=== PATIENT | male | born 1950 | race Caucasian/White ===

== ENCOUNTER → 2017-05-08 | Outpatient (CLI) | payer MEDICARE, OTHER ==
[2017-05-08 08:20] LABS: Blood Urea Nitrogen 14 mg/dL (9-20); Non-African American GFR(MDRD) >60 (>60 ml/min/1.73 sqM)
--- NOTE | 2017-05-08 10:15 | CT ---
EXAMINATION TYPE: CT abdomen pelvis w con DATE OF EXAM: 05/08/2017 REFERENCE: NONE HISTORY: K43.2 incisional hernia HISTORY: Incisional hernia REFERENCE: NONE CT DLP: 530.10 mGy Automated exposure control for dose reduction was used. TECHNIQUE: Helical acquisition through the abdomen and pelvis was obtained following the oral ingesti on of with Oral Contrast and following intravenous administration of 100 ml mL of Omnipaque 300. The data was reformatted in axial, coronal and sagittal projections. FINDINGS: There is an incompletely visualized 5.4 x 6.8 x 5.6 cm right lower thoracic paraspinal mas s which appears to extend across the midline.0 there is no associated vertebral body destruction. Thi s space appears maintained at these levels. There is some mild, dependent atelectasis at the lung bases. There is no pleural or pericardial fluid . The heart is not enlarged. Within the abdomen, there is an eventration of the rectus sheath. There is a small ventral hernia con taining small bowel with a mouth measuring approximately 2.7 cm. The liver, spleen and gallbladder are normal. Both adrenal glands are normal. Both kidneys demonstrate function and appear morphologically normal. The pancreas is unremarkable. There is [id number] calcification of the aortoiliac vessels. There is no significant retrocrural, retroperitoneal, iliac or inguinal adenopathy. The bladder is unremarkable. There is no significant diverticular change and there is no radiographic evidence of diverticulitis. The appendix is normal. Small bowel loops appear normal. There is no free fluid and no free air identified. There is a bilateral lysis at L5 with a grade 1 bordering on grade 2 spondylolisthesis of L4 on L5. T here is degenerative disc disease and hypertrophic spondylosis within the spine. IMPRESSION: 1. INCOMPLETELY VISUALIZED PARASPINAL MASS ON THE RIGHT EXTENDING ACROSS THE MIDLINE. A DIFFERENTIAL DIAGNOSIS WOULD INCLUDE NEUROGENIC TUMOR, LYMPHOMA AND EXTRA MEDULLARY HEMATOPOIESIS. 2. SMALL VENTRAL HERNIA CONTAINING SMALL BOWEL WITHOUT EVIDENCE OF OBSTRUCTION. 3. BILATERAL LYSIS AT L5 WITH A GRADE 1 BORDERING ON GRADE 2 SPONDYLOLISTHESIS OF L5 ON S1. 4. DEGENERATIVE CHANGES WITHIN THE SPINE.
== END | disposition home or self-care (01) ==
LOC: RADCTMAIN 07:41
PROVIDERS: ATTEND Surgery
DX: K43.9 Ventral hernia without obstruction or gangrene (principal)
CPT/HCPCS: 82565; 84520; 74177; Q9967

== ENCOUNTER → 2017-05-21 | Outpatient (CLI) | payer MEDICARE, OTHER ==
[2017-05-21 07:41] LABS: Blood Urea Nitrogen 20 mg/dL (9-20); Non-African American GFR(MDRD) >60 (>60 ml/min/1.73 sqM)
--- NOTE | 2017-05-21 08:44 | CT ---
EXAMINATION TYPE: CT chest w con DATE OF EXAM: 05/21/2017 COMPARISON: CT abdomen pelvis 05/08/2017 HISTORY: Abn CT abd pelvis, paraspinal mass CT DLP: 272.8 mGycm Automated exposure control for dose reduction was used. CONTRAST: CT scan of the chest is performed with IV Contrast, patient injected with 100 mL of Omnipaque 300. FINDINGS: LUNGS: There are centrilobular emphysematous changes greater as upper lobes, interlobular septal pleu ral thickening changes are also present compatible with interstitial lung disease. MEDIASTINUM: There are no greater than 1 cm hilar or mediastinal lymph nodes. Shotty nodes are presen t within the mediastinum and prevascular, superior mediastinum regions. No pericardial effusion is seen. AORTA: Ascending aorta measures approximately 3.9 cm on coronal reformatted images at the level of t he root. No evident dissection. OTHER: Patient's paraspinal mass is again seen and measures approximately 9 cm in cephalad to caudal dimension by approximately 6 cm in transverse dimension by 7 cm in AP dimension. No definite bone er osion. Vasculature is seen to course through the soft tissue mass. Lesion extends from approximately T9 to T11-12. IMPRESSION: Paraspinal mass as described in previous report, differential remains as discussed previ ously, consider lymphoma, neurogenic tumor, extra medullary hematopoiesis, there is no evident bone e rosion. Borderline ascending aortic measurement, consider follow-up.
== END | disposition home or self-care (01) ==
LOC: RADCTMAIN 07:01
PROVIDERS: ATTEND Surgery
DX: R22.2 Localized swelling, mass and lump, trunk (principal)
CPT/HCPCS: 82565; 84520; 71260; 36415; Q9967

== ENCOUNTER → 2017-06-24 | Outpatient (CLI) | payer MEDICARE, OTHER ==
--- NOTE | 2017-06-24 18:45 | MR ---
EXAMINATION TYPE: MR thoracic spine wo/w con DATE OF EXAM: 06/24/2017 COMPARISON: CT chest May 21, 2017 HISTORY: Back pain per patient. Neoplasm of uncertain behavior of bone and articular cartilage per or tammy. TECHNIQUE: Multiplanar, multisequence imaging of thoracic spine is performed without and with IV cont rast, patient is injected with 15 cc of gadolinium for the study. FINDINGS: Spinal cord shows normal course, caliber, and signal as it courses the thoracic spine. Winsome tebral body heights and alignment are satisfactory. Disc space heights are fairly well preserved. No large posterior disc herniations are seen on sagittal images. Bone marrow signal intensity is maintai joseph. No suspicious postcontrast enhancement is identified. No significant spurring is seen. Sagittal T2 counting image shows reversal of normal cervical curvature with small posterior disc herniations e ffacing anterior thecal sac C3-C4, C5-C6, and C6-C7 levels. Review of the axial images shows no significant spinal canal stenosis or neural disc herniation at an y thoracic level. Correlating with recent CT there is heterogeneous curvilinear enhancing soft tissu e to the right of the aorta in the lower thoracic spine beginning at roughly T9 level extending to T1 2 level with loss of normal retroperitoneal fat. This begins axial image 9 extends through image 4. N oncontiguous axial MRI imaging is performed. No suspicious cortical destruction or adjacent bone namita ow signal changes are identified. IMPRESSION: Abnormal right anterolateral paraspinal soft tissue lower thoracic spine redemonstrated, etiology uncertain. Low-grade infection or infectious process not excluded. Extra medullary hematopoi esis and lymphoma are in differential. Other etiologies are not excluded.
== END | disposition home or self-care (01) ==
LOC: RADMRIMAIN 16:39
PROVIDERS: ATTEND Neurological Surgery
DX: D48.0 Neoplasm of uncertain behavior of bone and articular cartilage (principal)
CPT/HCPCS: 72157; A9577

== ENCOUNTER → 2023-05-13 | Outpatient (CLI) | payer MEDICARE ==
--- NOTE | 2023-05-13 11:17 | XR ---
EXAMINATION TYPE: XR cervical spine comp DATE OF EXAM: 05/13/2023 COMPARISON: NONE HISTORY: Pain TECHNIQUE: Four views are submitted. FINDINGS: The odontoid is intact. There are no compression deformities. The prevertebral soft tissue structur es are within normal limits. Calcification in the soft tissue of the neck appears vascular. There is a 2 mm anterolisthesis of C3 on C4. There is severe degenerative disc disease at levels C4-T1 with m ultilevel facet arthropathy and loss of normal cervical lordosis. There is bilateral foraminal encroa chment level C3-T1. Lung apices are clear. IMPRESSION: 1. Multilevel severe degenerative disc disease and multilevel facet arthropathy with multilevel brandy inal encroachment. Consider follow-up MRI.
== END | disposition home or self-care (01) ==
LOC: RADXRYALE 10:49
PROVIDERS: ATTEND Internal Medicine
DX: M50.321 Other cervical disc degeneration at C4-C5 level (principal); M47.812 Spondylosis without myelopathy or radiculopathy, cervical region; M48.02 Spinal stenosis, cervical region
CPT/HCPCS: 72050

== ENCOUNTER → 2023-09-10 | Outpatient (CLI) | payer MEDICARE ==
--- NOTE | 2023-09-10 11:30 | MR ---
EXAMINATION TYPE: MR brain and iac wo/w con DATE OF EXAM: 09/10/2023 COMPARISON: None HISTORY: Dizziness, ataxia, imbalance. TECHNIQUE: Multiplanar, multisequence images of the brain and brainstem is performed without and with IV contras t, utilizing 7 mL intravenous Gadavist . FINDINGS: Diffusion weighted images demonstrate no evidence of a recent infarct or other diffusion ab normality. There is moderate generalized degenerative change. Numerous areas of abnormal signal throughout the w jonatan matter bilaterally compatible with vascular ischemia. Midline structures demonstrate normal morp hology. The craniocervical junction appears within normal limits. Post contrast images demonstrate no abnormal enhancement. The dural venous sinuses appear patent. On changes of chronic sinusitis. Orbits are symmetric. Abnormal signal appliances most of remote isch emia. There are changes of intermediate signal involving the mastoid air cells most likely on the basis of chronic mastoiditis. No cerebellopontine angle mass or acoustic schwannoma. IMPRESSION: 1. Degenerative and remote ischemic change with no evidence of cerebellopontine angle mass or acousti c schwannoma. 2. Chronic mastoiditis.
== END | disposition home or self-care (01) ==
LOC: RADMRIMAIN 08:54
PROVIDERS: ATTEND Psychiatry & Neurology Neurology
DX: G81.92 Hemiplegia, unspecified affecting left dominant side (principal); I67.82 Cerebral ischemia; G31.9 Degenerative disease of nervous system, unspecified
CPT/HCPCS: 70553; A9585

== ENCOUNTER → 2024-10-02 | Outpatient (CLI) | payer MEDICARE ==
--- NOTE | 2024-10-02 14:04 | MR ---
EXAMINATION TYPE: MR cspine/tspine wo con DATE OF EXAM: 10/02/2024 9:42 AM COMPARISON: 09/12/2023., 06/24/2017 CLINICAL INDICATION: Male, 74 years old with history of M47.12 OTHER SPONDYLOSIS WITH MYELOPATHY, CER VICAL; PHH, F/U abnormal MRI, myelopathy TECHNIQUE: Multi planar, multi sequence imaging was performed utilizing: T1-weighted, T2-weighted, a nd turbo inversion recovery imaging of the cervical and thoracic spine. MR contrast: IV Contrast: cc , None. FINDINGS: CERVICAL: Alignment: The cervical vertebral bodies have preserved heights. Reversal of the normal alignment of the cervical spine is not significantly changed from prior. Bones: Bone signal is within normal limits. No abnormal bone marrow edema on inversion recovery seque nces. Cord: The spinal cord is unremarkable with regards to their signal intensity and morphology. Discs: Multilevel disc desiccation is present. C2-C3: A disc osteophyte complex is present with mild to moderate spinal canal stenosis. Bilateral f acet and uncovertebral joint arthropathy are present with mild bilateral neural foraminal stenosis. C3-C4: A disc osteophyte complex is present with mild spinal canal stenosis. Bilateral facet and unc overtebral joint arthropathy are present with moderate to severe left and moderate right neural brandy inal stenosis. C4-C5: A disc osteophyte complex is present with mild spinal canal stenosis. Bilateral facet and unc overtebral joint arthropathy are present with mild to moderate bilateral neural foraminal stenosis. C5-C6: No significant disc pathology. The spinal canal is patent. Bilateral facet and uncovertebral joint arthropathy are present with moderate to severe left and moderate right neural foraminal stenos is. C6-C7: A disc osteophyte complex is present with moderate spinal canal stenosis. Bilateral facet and uncovertebral joint arthropathy are present with moderate to severe bilateral neural foraminal steno sis. C7-T1: A disc osteophyte complex is present with moderate spinal canal stenosis. Bilateral facet and uncovertebral joint arthropathy are present with moderate to severe bilateral neural foraminal steno sis. THORACIC: No evidence for abnormal bony edema. The neural foramen appear patent. The spinal alignment is within normal limits. No evidence for compression deformity. T10-T11 mild spinal canal stenosis s econdary to disc bulging and ligamentum flavum buckling. There may be a small central disc protrusion at T12-L1 centrally without significant spinal canal stenosis. Other: None. IMPRESSION: Overall findings not significantly changed from prior in the cervical spine with mild progression of the thoracic spine. 1. Moderate to severe degeneration changes of the cervical spine with multilevel moderate and modera te to severe neural foraminal stenosis. There is also multilevel at least moderate spinal canal steno sis. Spinal canal signal appears maintained. 2. No evidence for significant spinal canal stenosis in the thoracic spine. Mild narrowing at T10-T 11. 3. T12-L1 central disc protrusion suggested without significant spinal canal stenosis. No evidence f or significant neural foraminal stenosis throughout the thoracic spine. [facility], , 10/02/2024 2:01 PM
== END | disposition home or self-care (01) ==
LOC: RADMRIMAIN 08:30
PROVIDERS: ATTEND Psychiatry & Neurology Neurology
DX: M48.02 Spinal stenosis, cervical region (principal); M50.00 Cervical disc disorder with myelopathy, unspecified cervical region; M47.12 Other spondylosis with myelopathy, cervical region; M99.71 Connective tissue and disc stenosis of intervertebral foramina of cervical region; R93.7 Abnormal findings on diagnostic imaging of other parts of musculoskeletal system
CPT/HCPCS: 72141; 72146

== ENCOUNTER → 2024-11-11 | Outpatient (CLI) | payer MEDICARE ==
[2024-11-11 10:29] VITALS: BP 170/80; PULSE 67; RESP 16
--- NOTE | 2024-11-11 14:42 | P.PAINPG ---
Objective - Vital Signs Vital signs: Intake & Output 11/10/24 11/11/24 11/11/24 18:59 06:59 18:59 Weight 74.843 kg PQRS Measure Charge Sheet Comment: HISTORY OF PRESENT ILLNESS: A 74 yr old male w at side as a referral from Dr Robison presents today w severe and chronic neck pain > 3 mo secondary to radiculopathy, spondylosis and facet arthropathy without myelopathy for evaluation. Pt states pain level is provoked at 1 /10 in intensity, constant, localized in the cervical spine, predominantly axial, sore in character w occasional shooting pain towards the BL shoulders. He mostly complains of dizziness. Pain is provoked by hyperextension. Pain is alleviated by PT x 6 wks which ended in May 2024 and cannot redo PT until Dec 2024, manual massage, repositioning and rest . Cervical disability score at 5. PMH: OA, HTN, Hyperlipidemia PSH: Abdominal Incisional Wound, Bladder Surgery, Bowel Resection SH: Daily 40 pack/ yr tobacco use, Rare ETOH use, No illicit drug use FH: Mo- No Reported History All: See list Meds: See list REVIEW OF ORGAN SYSTEMS: CONSTITUTIONAL: No fevers or chills. No recent weight loss. NEUROLOGICAL: + numbness and tingling along the distal extremities. No seizure disorders or headaches. MUSCULOSKELETAL: + pain PSYCHIATRIC: Denies current depression or suicidal thoughts. Physical Examinations : Constitutional : Cooperative , not in acute distress . Neurologic : Cranial nerve II to XII intact. No focal neurological deficits. Psychiatric : alert & oriented x 3. Matching mood & appropriate affect. Judgment & insight intact. Musculoskeletal : Cervical Spine Motor strength in the deltoid and biceps: Normal right side. Normal Left side Motor strength biceps and the wrist extensors: Normal right side . Normal left side Motor strength in the triceps muscle: Normal right side. Normal left side Deep tendon reflexes: Normal at the biceps. Normal at Brachioradialis. Normal at triceps Vertebral body tenderness to deep palpation over C7 Cervical facet loading test: positive bilaterally Spurling test: positive bilaterally Neck distraction test: positive bilaterally Keri sign: positive bilaterally Lumbar spine Motor strength lower extremities ,thigh and legs 5/5 Right side , 5/5 Left side Deep tendon reflexes : Normal Knee Jerk. Normal Ankle Jerk Vertebral body tenderness over Lowry Test positive Lumbar facet Loading Test: positive Right / positive Left Range of motion of the lumbar spine Flexion 30 degrees, extension 10 degrees Straight Leg Raise test: Left/ Right positive at degrees David test: positive right / positive left. Severe tenderness over the Sacroiliac joint on the Right / Left sides Gaenslen test: positive bilaterally Seated flexion test: positive bilaterally. Sacral spine : Severe tenderness over the Sacroiliac joint: right side / left side Range of motion: Flexion of the lumbar spine <60 degrees Range of motion: Extension of the lumbar spine <20 degrees Gaenslen's Test positive David test: positive right side / left side Thigh Thrust Test Sacral Thrust Test Imaging: MRI non contrast cervical spine from 10/02/24 reviewed Assessment/ Plan : Cervical facet arthropathy, C7-T1 mod spinal stenosis Recommendation of medication management. Diclofenac gel w 1 RF. Use, side effects, adverse reactions, safe storage discussed. 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 All questions answered. I have spent greater than 30 minutes on patient care today. Dr Aceves was available by phone for the evaluation of this patient. The time was used to review the medical records including relevant urine studies and Prescription history (MAPs), review of the available imaging, evaluation and examination of the patient, coordination of care with the medical staff and if applicable referring physicians, as well as creation of the medical record PQRS Narrative: Smoking Status Current every day smoker Home Medications: Ambulatory Orders Multivitamins, Thera [Multivitamin] 1 tab PO DAILY 08/29/16 Atorvastatin [Lipitor] 20 mg PO DAILY 07/01/24 Losartan [Cozaar] 50 mg PO DAILY 07/01/24 amLODIPine [Norvasc] 5 mg PO HS 07/01/24 atenoloL [Tenormin] 25 mg PO BID 07/01/24 Diclofenac Sodium Gel [Voltaren 1% Gel] 50 gm TOPICAL BID 30 Days #1 each 11/01 12/25 Controlled Substance Measures - Controlled Substance Measures Is patient prescribed a controlled substance at discharge?: No
== END ==
LOC: PNWHC3 09:37
PROVIDERS: ATTEND Specialist
DX: M48.03 Spinal stenosis, cervicothoracic region (principal); M47.22 Other spondylosis with radiculopathy, cervical region; M25.78 Osteophyte, vertebrae; F17.210 Nicotine dependence, cigarettes, uncomplicated
CPT/HCPCS: 99211

== ENCOUNTER 2025-06-09 10:44 | Emergency (ER) | payer MEDICARE ==
--- NOTE | 2025-06-09 11:39 | ED ---
Abdominal Pain HPI - General Source: patient, RN notes reviewed Mode of arrival: ambulatory Limitations: no limitations <Michaela Wild - Last Filed: 06/09/25 11:39> - General Source: patient, RN notes reviewed Mode of arrival: ambulatory Limitations: no limitations <Yaya Sweeney - Last Filed: 06/09/25 16:35> - General Chief Complaint: Abdominal Pain Stated Complaint: abd pain, back pain Time Seen by Provider: 06/09/25 11:39 - History of Present Illness Initial Comments: Quick note: 75-year-old male presented the ER for evaluation of left-sided abdominal pain. He reports over the past couple of days he has been noticing left sided abdominal/flank pain. He does report it is worse with movement. No pain at rest. He states it is a cramping pain. He denies any change in bowel movements, dysuria, increased urinary frequency or hematuria. No fevers. No known injuries. (Michaela Wild) Patient is a 75-year-old male present to the emergency department with left flank discomfort. Onset of symptoms was around 24 hours ago. Discomfort is not quite as severe. Discomfort is only with movement at this time. Discomfort does become somewhat severe with movements however resolves with rest. No dysuria or hematuria. No nausea or vomiting. No fever. No history of similar symptoms previously. Patient denies any trauma. (Yaya Sweeney) - Related Data Home Medications Medication Instructions Recorded Confirmed Multivitamins, Thera [Multivitamin] 1 tab PO DAILY 08/29/16 07/02/24 Atorvastatin [Lipitor] 20 mg PO DAILY 07/01/24 07/02/24 Losartan [Cozaar] 50 mg PO DAILY 07/01/24 07/02/24 amLODIPine [Norvasc] 5 mg PO HS 07/01/24 07/02/24 atenoloL [Tenormin] 25 mg PO BID 07/01/24 07/02/24 Previous Rx's Medication Instructions Recorded Diclofenac Sodium Gel [Voltaren 1% 50 gm TOPICAL BID 30 Days #1 each 11/11/24 Gel] HYDROcodone/APAP 5-325MG [[place] 1 tab PO Q6HR PRN 3 Days #12 tab 06/09/25 5-325] Allergies Allergy/AdvReac Type Severity Reaction Status Date / Time No Known Allergies Allergy Verified 07/01/24 08:12 Review of Systems ROS Other: All systems not noted in ROS Statement are negative. <Michaela Wild - Last Filed: 06/09/25 11:39> ROS Other: All systems not noted in ROS Statement are negative. Constitutional: Denies: fever Eyes: Denies: eye pain ENT: Denies: ear pain Respiratory: Denies: dyspnea Cardiovascular: Denies: chest pain Gastrointestinal: Reports: as per HPI, abdominal pain (Left flank and somewhat in the back) <Yaya Sweeney - Last Filed: 06/09/25 16:35> ROS Statement: Those systems with pertinent positive or pertinent negative responses have been documented in the HPI. Past Medical History Past Medical History: CVA/TIA, Hyperlipidemia, Hypertension Additional Past Medical History / Comment(s): perforated bowel 6 yrs. ago, low grade B-cell lymphoma, experiencing dizziness/balance problems History of Any Multi-Drug Resistant Organisms: None Reported Past Surgical History: Bladder Surgery, Bowel Resection, Hernia Repair Additional Past Surgical History / Comment(s): incisional hernia repair w/ mesh Past Anesthesia/Blood Transfusion Reactions: No Reported Reaction Past Psychological History: No Psychological Hx Reported Smoking Status: Current every day smoker - Past Family History Mother Family Medical History: CVA/TIA Additional Family Medical History / Comment(s): age 80 CVA Father Family Medical History: Myocardial Infarction (OR) Additional Family Medical History / Comment(s): age 67 OR <Michaela Wild - Last Filed: 06/09/25 11:39> General Exam Limitations: no limitations <Michaela Wild - Last Filed: 06/09/25 11:39> Limitations: no limitations General appearance: alert, in no apparent distress Head exam: Present: normocephalic Eye exam: Present: normal appearance Neck exam: Present: normal inspection Respiratory exam: Present: normal lung sounds bilaterally Cardiovascular Exam: Present: regular rate, normal rhythm GI/Abdominal exam: Present: soft, tenderness (Minimal tenderness left mid abdomen) Extremities exam: Present: normal inspection Back exam: Present: CVA tenderness (L) (Below left CVA) Neurological exam: Present: alert. Absent: motor sensory deficit Psychiatric exam: Present: normal affect, normal mood Skin exam: Present: normal color <Yaya Sweeney - Last Filed: 06/09/25 16:35> - General Exam Comments Initial Comments: Visual Physical Exam Vital signs reviewed General: Well-appearing, nontoxic, no acute distress. Head: Normocephalic, atraumatic Eyes: PERRLA, EOMI ENT: Airway patent Chest: Nonlabored breathing Skin: No visual rash, normal skin tone Neuro: Alert and oriented 3 Musculoskeletal: No gross abnormalities (Michaela Wild) Course Vital Signs 06/09/25 06/09/25 10:57 15:12 Temperature 97.6 F 98.6 F Pulse Rate 62 58 L Respiratory 16 13 Rate Blood Pressure 187/83 151/73 O2 Sat by Pulse 98 96 Oximetry Medical Decision Making <Michaela Wild - Last Filed: 06/09/25 11:39> - Lab Data Result diagrams: 06/09/25 11:42 06/09/25 11:42 <Yaya Sweeney - Last Filed: 06/09/25 16:35> - Medical Decision Making I performed the quick note portion of this chart. Electronically signed by Michaela Wild PA-C (Michaela Wild) Was pt. sent in by a medical professional or institution ([facility], [facility], urgent care, hospital, or halfway...) When possible be specific @ -No Did you speak to anyone other than the patient for history (EMS, parent, family, police, friend...)? What history was obtained from this source @ -No Did you review nursing and triage notes (agree or disagree)? Why? @ -I reviewed and agree with nursing and triage notes Were old charts reviewed (outside hosp., previous admission, EMS record, old EKG, old radiological studies, urgent care reports/EKG's, halfway records)? Report findings @ -No old charts were reviewed Differential Diagnosis (chest pain, altered mental status, abdominal pain women, abdominal pain men, vaginal bleeding, weakness, fever, dyspnea, syncope, headache, dizziness, GI bleed, back pain, seizure, CVA, palpatations, mental health, musculoskeletal)? @ -Differential Abdominal Pain Men: Appendicitis, cholecystitis, diverticulosis, ischemic bowel, pancreatitis, hepatitis, UTI, gastroenteritis, AAA, incarcerated hernia, bowel obstruction, constipation, inflammatory bowel, hepatitis, peptic ulcer disease, splenic infarction, perforated viscus, testicular torsion, this is not meant to be an all-inclusive list EKG interpreted by me (3pts min.). @ -As above X-rays interpreted by me (1pt min.). @ -None done CT interpreted by me (1pt min.). @ -CT scan shows hematoma left kidney as well as bladder masses U/S interpreted by me (1pt. min.). @ -None done What testing was considered but not performed or refused? (CT, X-rays, U/S, labs)? Why? @ -None What meds were considered but not given or refused? Why? @ -None Did you discuss the management of the patient with other professionals (professionals i.e. DrElicia, PA, [facility], lab, RT, psych nurse, social media designer, funding analyst, teacher, ordnance officer, case aide)? Give summary @ -Case discussed with Dr. Ortega who did review the films and is comfortable with discharge and follow-up this week Was smoking cessation discussed for >3mins.? @ -No Was critical care preformed (if so, how long)? @ -No Were there social determinants of health that impacted care today? How? (Homelessness, low income, unemployed, alcoholism, drug addiction, transportation, low edu. Level, literacy, decrease access to med. care, [facility], rehab)? @ -No Was there de-escalation of care discussed even if they declined (Discuss DNR or withdrawal of care, Hospice)? DNR status @ -No What co-morbidities impacted this encounter? (DM, HTN, Smoking, COPD, CAD, Cancer, CVA, ARF, Chemo, Hep., AIDS, mental health diagnosis, sleep apnea, morbid obesity)? @ -None Was patient admitted / discharged? Hospital course, mention meds given and route, prescriptions, significant lab abnormalities, going to OR and other pertinent info. @ -Patient presents with left flank pain. There is concern for hematoma as well as masses in the bladder. Patient updated. Case was discussed with rafael de la paz with plans with follow-up within the week. Patient prescribed [place] No. 12. Patient updated on results and plan Undiagnosed new problem with uncertain prognosis? @ -No Drug Therapy requiring intensive monitoring for toxicity (Heparin, Nitro, Insulin, Cardizem)? @ -No Were any procedures done? @ -No Diagnosis/symptom? @ -Flank pain Acute, or Chronic, or Acute on Chronic? @ -Acute Uncomplicated (without systemic symptoms) or Complicated (systemic symptoms)? @ -Default Side effects of treatment? @ -No Exacerbation, Progression, or Severe Exacerbation? @ -No Poses a threat to life or bodily function? How? (Chest pain, [place], OR, pneumonia, PE, COPD, DKA, ARF, appy, cholecystitis, CVA, Diverticulitis, Homicidal, Suicidal, threat to staff... and all critical care pts) @ -No (Yaya Sweeney) - Lab Data Lab Results 06/09/25 06/09/25 06/09/25 Range/Units 11:42 11:42 11:42 WBC 11.80 H (4.50-10.00) 10*3/uL RBC 4.32 L (4.40-5.60) 10*6/uL Hgb 14.2 (13.0-17.0) g/dL Hct 41.0 (39.6-50.0) % MCV 94.9 (80.0-97.0) fL MCH 32.9 H (27.0-32.0) pg MCHC 34.6 (32.0-37.0) g/dL Plt Count 214 (140-440) 10*3/uL MPV 10.2 (9.5-12.2) fL Immature Gran % (Auto) 0.4 % Neutrophils % 79.6 % Lymphocytes % 13.3 % Monocytes % 6.1 % Eosinophils % 0.2 % Basophils % 0.4 % Immature Gran # 0.05 H (0.00-0.04) 10*3/uL Neutrophils # 9.39 H (1.80-7.70) 10*3/uL Lymphocytes # 1.57 (0.90-5.00) 10*3/uL Monocytes # 0.72 (0.20-1.00) 10*3/uL Eosinophils # 0.02 L (0.04-0.35) 10*3/uL Basophils # 0.05 (0.00-0.10) 10*3/uL Sodium 136 L (137-145) mmol/L Potassium 4.4 (3.5-5.1) mmol/L Chloride 98 (98-107) mmol/L Carbon Dioxide 23 (22-30) mmol/L Anion Gap 15 mmol/L BUN 15 (9-20) mg/dL Creatinine 0.88 (0.66-1.25) mg/dL Est GFR (CKD-EPI)AfAm >90 (>60 ml/min/1.73 sqM) Est GFR (CKD-EPI)NonAf 84 (>60 ml/min/1.73 sqM) Glucose 123 H (74-99) mg/dL Calcium 10.1 (8.4-10.2) mg/dL Total Bilirubin 0.5 (0.2-1.3) mg/dL AST 24 (17-59) U/L ALT 23 (4-49) U/L Alkaline Phosphatase 88 (38-126) U/L Total Protein 8.0 (6.3-8.2) g/dL Albumin 4.6 (3.5-5.0) g/dL Urine Color Yellow Urine Appearance Clear (Clear) Urine pH 7.0 (5.0-8.0) Ur Specific [place] 1.014 (1.001-1.035) Urine Protein Negative (Negative) Urine Glucose (UA) Negative (Negative) Urine Ketones Negative (Negative) Urine Blood Moderate H (Negative) Urine Nitrite Negative (Negative) Urine Bilirubin Negative (Negative) Urine Urobilinogen <2.0 (<2.0) mg/dL Ur Leukocyte Esterase Negative (Negative) Urine RBC >182 H (0-5) /hpf Urine WBC 1 (0-5) /hpf Urine Mucus Rare H (None) /hpf Disposition <Michaela Wild - Last Filed: 06/09/25 11:39> Is patient prescribed a controlled substance at d/c from ED?: Yes When asked, does pt state using other controlled substances?: No If prescribed controlled substance>3 days was MAPS reviewed?: Prescribed <3 Days If opioid is for acute pain is fill amount 7 days or less?: Yes If Rx opioid, was Start Talking consent form obtained?: Yes Time of Disposition: 16:35 <Yaya Sweeney - Last Filed: 06/09/25 16:35> Clinical Impression: Renal hematoma Disposition: HOME SELF-CARE Condition: Stable Instructions (If sedation given, give patient instructions): Flank Pain (ED), Hematuria (ED) Additional Instructions: Please follow-up with Dr. powell this week. Prescription for [place] given to you as it is unable to be sent electronically. Please do follow-up with your [facility] physician in the next couple of days for recheck. Return for increased pain, weakness, fever, vomiting, worsening symptoms or other concerns Prescriptions: HYDROcodone/APAP 5-325MG [[place] 5-325] 1 tab PO Q6HR PRN 3 Days #12 tab PRN Reason: Pain Referrals: Yaa Robison MD [Primary Care Provider] - 1-2 days Dale Powell MD [STAFF PHYSICIAN] - 1-2 days
--- NOTE | 2025-06-09 11:44 | CT ---
EXAMINATION TYPE: CT abdomen pelvis wo con DATE OF EXAM: 06/09/2025 11:31 AM COMPARISON: 06/20/2017 CLINICAL INDICATION: Male, 75 years old with history of lft flank pain rad to abd; left flank pain ra diating to abdomen TECHNIQUE: Axial CT abdomen pelvis wo con;Sagittal and coronal reformats were created on a separate workstation. Contrast used: mL of , (none if empty) Oral contrast used: without Oral Contrast (none if empty) CT DLP: 489.9 mGycm, Automated exposure control for dose reduction was used. FINDINGS: LOWER CHEST: Unremarkable ABDOMEN LIVER: Unremarkable GALLBLADDER AND BILE DUCTS: Unremarkable. PANCREAS: Unremarkable. SPLEEN: Unremarkable. ADRENAL GLANDS: Poor visualization of the left adrenal gland. KIDNEYS AND URETERS: No evidence of hydronephrosis or obstructing renal calculus. The ureters are unr emarkable. New abnormal appearance of the left kidney with masslike area extending medially toward s midline the adrenal gland is not well visualized. PELVIS BLADDER: No evidence for wall thickening or mass given limitations of exam. REPRODUCTIVE: Unremarkable. ABDOMEN & PELVIS STOMACH AND BOWEL: No evidence of bowel obstruction. Postsurgical changes of large bowel. PERITONEUM/RETROPERITONEUM: No evidence of pneumoperitoneum or free fluid. VASCULATURE: No evidence of aortic aneurysm. MUSCULOSKELETAL: No acute osseous abnormalities. Moderate disc degeneration changes are present throu ghout the thoracolumbar spine. 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 LYMPH NODES: No gross evidence for lymphadenopathy. SOFT TISSUE/ABDOMINAL WALL: Unremarkable IMPRESSION: 1. Masslike appearance of the superior medial left kidney which blends in with the left adrenal glan d. Further evaluation with IV contrast recommended underlying mass is felt to be present. Correlate f or history of trauma. 2. No obstructive uropathy no renal calculus. 3. No evidence for diverticulitis. 4. 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 [facility], , 06/09/2025 11:42 AM
[2025-06-09 11:56] LABS: Basophils # (A) 0.05 10*3/uL (0.00-0.10); Basophils % (A) 0.4 %; Eosinophils # (A) 0.02 10*3/uL (0.04-0.35); Eosinophils % (A) 0.2 %; HCT 41.0 % (39.6-50.0); HGB 14.2 g/dL (13.0-17.0); Lymphocytes # (A) 1.57 10*3/uL (0.90-5.00); Lymphocytes % (A) 13.3 %; MCH 32.9 pg (27.0-32.0); MCHC 34.6 g/dL (32.0-37.0); MCV 94.9 fL (80.0-97.0); Monocytes # (A) 0.72 10*3/uL (0.20-1.00); Monocytes % (A) 6.1 %; Neutrophils # (A) 9.39 10*3/uL (1.80-7.70); Neutrophils % (A) 79.6 %; Platelet Count 214 10*3/uL (140-440); RBC 4.32 10*6/uL (4.40-5.60); RDW 12.2 % (11.5-14.5); WBC 11.80 10*3/uL (4.50-10.00)
[2025-06-09 12:04] LABS: Bilirubin,Urine Negative (Negative); Blood,Urine Moderate (Negative); Color,Urine Yellow; Glucose,Urine (UA) Negative (Negative); Ketones,Urine Negative (Negative); Leukocyte Esterase,Urine Negative (Negative); Mucus,Urine Rare /hpf; Nitrite,Urine Negative (Negative); PH, Urine 7.0 (5.0-8.0); Protein,Urine Negative (Negative); RBC,Urine >182 /hpf (0-5); Specific Gravity,Urine 1.014 (1.001-1.035); Urobilinogen,Urine <2.0 mg/dL (<2.0); WBC,Urine 1 /hpf (0-5)
[2025-06-09 12:05] LABS: ALT 23 U/L (4-49); AST 24 U/L (17-59); African American GFR (CKD) >90 (>60 ml/min/1.73 sqM); Albumin 4.6 g/dL (3.5-5.0); Alkaline Phosphatase 88 U/L (38-126); Anion Gap 15 mmol/L; Blood Urea Nitrogen 15 mg/dL (9-20); Calcium 10.1 mg/dL (8.4-10.2); Carbon Dioxide 23 mmol/L (22-30); Chloride 98 mmol/L (98-107); Glucose 123 mg/dL (74-99); Non-African American GFR(CKD) 84 (>60 ml/min/1.73 sqM); Potassium 4.4 mmol/L (3.5-5.1); Sodium 136 mmol/L (137-145); Total Protein 8.0 g/dL (6.3-8.2)
[2025-06-09] MEDS: ACETAMINOPHEN IV (For NPO) 1,000 MG in EMPTY BAG 1 BAG IVPB STA (14:40)
--- NOTE | 2025-06-09 15:19 | CT ---
EXAMINATION TYPE: CT abdomen pelvis w con DATE OF EXAM: 06/09/2025 COMPARISON: 06/09/2025 CLINICAL INDICATION: Male, 75 years old with history of L renal mass; PHH, Left renal mass TECHNIQUE: Performed without Oral Contrast and with IV Contrast, patient injected with 100 ml mL of Isovue 300. CT DLP: 833.[address] CTDI: mGy Automated exposure control for dose reduction was used. FINDINGS: The lung bases are clear. The gallbladder is normal without distention, wall thickening, pericholecystic fluid or gallstones. T here is no biliary ductal dilatation. There is no focal mass or organomegaly involving the liver, pancreas, spleen or adrenal glands. There is a hyperdense perinephric fluid collection surrounding the left kidney consistent with a subc apsular hematoma. There is no renal calcification, hydronephrosis or solid renal mass. The caliber the abdominal aorta is normal is no retroperitoneal adenopathy or hemorrhage. The bowel loops are normal in caliber and there is no evidence of dilatation or obstruction. There ar e anastomotic sutures in the hepatic flexure. No inflammatory changes are identified in the bowel wal l or mesentery. There is no free intraperitoneal air or fluid. There are 2 irregular enhancing masses within the left aspect of the urinary bladder on measuring 17 mm and the other 18 mm is suspicious for urinary bladder malignancy. The osseous structures and soft tissues are intact. IMPRESSION: 1. Acute perinephric subcapsular hematoma of the left kidney. No solid renal mass, renal calcificatio n or hydronephrosis. 2. 2 left wall urinary bladder masses highly suspicious for malignant as described above. Further ev aluation is warranted. [facility], , 06/09/2025 3:17 PM
[2025-06-09] MEDS: HYDROcodone/APAP 5-325MG 1 EACH TAB PO STA (16:51)
[2025-06-09 16:52] VITALS: BP 147/69; PULSE 67; RESP 20; TEMP 98.2
== END 2025-06-09 16:54 | disposition home or self-care (01) ==
LOC: EC 10:44
DX: S37.012A Minor contusion of left kidney, initial encounter (principal); F17.200 Nicotine dependence, unspecified, uncomplicated; X50.0XXA Overexertion from strenuous movement or load, initial encounter
CPT/HCPCS: 36415; 80053; 85025; 81001; 74176; 74177; 99284; 96365; J0131; Q9967